=== PATIENT | male | born 1995 | race African-American/Black ===

== ENCOUNTER 2023-03-24 23:14 | Emergency (ER) | payer SELFPAY ==
[2023-03-24 23:20] VITALS: BP 137/81; PULSE 82; RESP 18; TEMP 36.6; O2SAT 99
--- NOTE | 2023-03-25 00:59 | ED.EYEPROB ---
HPI - Eye Problem General Chief complaint: Eye Problems Stated complaint: i got bleach in my eye Time Seen by Provider: 03/24/23 23:54 Source: patient Mode of arrival: ambulatory Limitations: no limitations History of Present Illness HPI Narrative: This is a 27-year-old male who presents to the ED with chief complaint of left eye injury occurring just prior to arrival. Patient was opening a bottle of bleach and accidentally splashed a few drops in the left eye. Reports he had immediate burning and vision blurring on that left side. He states that vision has been getting slowly better as the night has gone on. Denies pain with EOMs. Denies any further injury. Related Data Allergies Allergy/AdvReac Type Severity Reaction Status Date / Time No Known Allergies Allergy Verified 03/24/23 23:36 Review of Systems Review of Systems: All systems as dictated in HPI Exam Narrative: GENERAL: Well-appearing, well-nourished, and in no acute distress. HEAD: Normocephalic, atraumatic. EYES: PERRLA and EOMI. mild conjunctival injection on the left side. Visual acuity intact bilaterally ENT: Nares clear, no rhinorrhea or epistaxis. Mucous membranes moist. Oropharynx without tonsillar hypertrophy exudate or other lesions. NECK: Supple. No adenopathy or masses. CHEST: No respiratory distress. Clear to auscultation. No wheezes rales or rhonchi HEART: Regular rate and rhythm. No murmur heard. Normal peripheral pulses. ABDOMEN: Soft, nontender, nondistended, normal active bowel sounds. MSK: Normal range of motion. No edema. SKIN: Warm, dry, no rash. NEURO: Alert and oriented x3. No focal deficits. PSYCH: Normal mood and affect. Butler lamp exam: No corneal ulceration noted. There is a very small corneal abrasion noted to the 3 o'clock position. Course Vital Signs Vital signs: Vital Signs Temperature 97.9 F 03/24/23 23:20 Pulse Rate 82 03/24/23 23:20 Respiratory Rate 18 03/24/23 23:20 Blood Pressure 137/81 03/24/23 23:20 Pulse Oximetry 99 03/24/23 23:20 Oxygen Delivery Room Air 03/24/23 23:20 Temperature 97.9 F 03/24/23 23:20 Pulse Rate 82 03/24/23 23:20 Respiratory Rate 18 03/24/23 23:20 Blood Pressure 137/81 03/24/23 23:20 Pulse Oximetry 99 03/24/23 23:20 Oxygen Delivery Room Air 03/24/23 23:20 MDM - Eye Problem MDM Narrative Medical decision making narrative: This is a 27-year-old male who presents to the ED with chief complaint of left eye injury. Accidentally splashed some drops of bleach on the eye. He immediately flushed the eye at home. Vitals are normal. Exam shows mild conjunctival injection. Butler lamp reveals a very small corneal abrasion which he probably sustained while cleaning the eye. No evidence of corneal ulceration. He is a contact lens wear. Immediate relief with tetracaine. Prescription for ofloxacin drops given. Vision center referral given. Pt will be discharged in stable condition. Return precautions given and supportive measures discussed. Pt is understanding and agreeable with plan for discharge and follow-up with PCP. Discharge Plan Discharge Clinical Impression: Corneal abrasion Patient Disposition: Home, Self-Care Condition: Stable Instructions: Antibiotic Form Additional Instructions: Your exam is reassuring today. There is evidence of a very small abrasion to the cornea. Please use eyedrops as prescribed. Return for any new or worsening symptoms Follow [facility] vision center: [address] [place] [address] [phone] Prescriptions: New ofloxacin 0.3 % drops See Rx Instructions .ROUTE .COMPLEX Qty: 5 0RF Rx Instructions: put 1-2 drps into affected eye(s) every 2-4 h x 2 days, then 1-2 drps 4 times/day days 3-7 Follow-up/Referrals: PHYSICIAN,DIRECTOR OF STUDENT SERVICES [Primary Care Provider] - Time of Disposition: 01:05
[2023-03-25] MEDS: OFLOXACIN 0.3% OPHTH SOLN 5 ML BTL 1 DROP LEFT EYE (01:19)
== END 2023-03-25 01:21 | disposition home or self-care (01) ==
PROVIDERS: Emergency Provider Physician Assistant
DX: S05.02XA Injury of conjunctiva and corneal abrasion without foreign body, left eye, initial encounter (principal); X58.XXXA Exposure to other specified factors, initial encounter
CPT/HCPCS: 99283; A9270